=== PATIENT | male | born 1995 | race Caucasian/White ===

== ENCOUNTER 2019-07-03 09:58 | Inpatient (IN) | payer SELFPAY ==
[~2019-07-03] VITALS: Ht 170.2 cm; Wt 130.0 kg
[2019-07-03] MEDS ORDERED: SODIUM CHLORIDE 0.9% 1,000 ML IV ONE ×2 (10:26)
[2019-07-03] MEDS ORDERED: LIDOCAINE VISCOUS 2% 15ML UD PO ONE (10:30)
[2019-07-03] MEDS ORDERED: ALUM & MAG HYDROX-SIMETH LIQ(MAALOX) 30 ML PO ONE (10:30)
[2019-07-03] MEDS ORDERED: DONNATAL 5ml ORAL Elix (BELLADONNA ALK-PHENOBARB) PO ONE (10:30)
[2019-07-03 10:45] LABS: Red Blood Cells 5.52 10^6/uL (4.5-5.90)
[2019-07-03 10:48] LABS: Hemoglobin 13.5 g/dL (13.5-17.5); Mean Corpuscular Hemoglobin 24.4 pg (28.0-32.0); Mean Corpuscular Hgb Conc. 32.1 g/dL (32.0-36.0); Mean Corpuscular Volume 76.1 fL (80.0-100.0); Platelet Count (auto) 272 10^3/uL (140-450); White Blood Cell 10.7 10^3/uL (4.4-10.8)
[2019-07-03 10:59] LABS: Red Cell Distribution Width 21.1 % (11.8-14.3)
[2019-07-03 11:01] LABS: Calcium 8.4 mg/dL (8.5-10.1); Potassium 3.8 mmol/L (3.5-5.1)
[2019-07-03 11:04] LABS: Bilirubin, Total 0.3 mg/dL (0.2-1.0); Total Protein 7.4 g/dL (6.4-8.2)
[2019-07-03 12:27] LABS: Urine Bacteria NONE SEEN /hpf (None Seen); Urine Blood Negative /uL (Negative); Urine Mucus FEW (None Seen); Urine Specific Gravity 1.029 (1.001-1.035); Urine WBC 1 /hpf (0 - 3)
[2019-07-03] MEDS: FAMOTIDINE (10MG/ML) 2ML VL IV SCH ×2 (14:21→21:27)
[2019-07-03] MEDS ORDERED: GASTROGRAFIN 120 ML SOL ONE (14:21)
[2019-07-03] MEDS ORDERED: ONDANSETRON HCL 4 MG/2 ML VIAL IV PRN (14:30)
[2019-07-03] MEDS ORDERED: MORPHINE SULF INJ 2 MG/ML SYRINGE 1ML IV PRN (14:30)
--- NOTE | 2019-07-03 18:27 | NUR ---
MS admit from ER ERIKA BARON admitted to tele/MS after SBAR received. Patient oriented to Viola Mendoza, primary RN, unit, room, bed, and unit policies regarding patient care and visiting hours. Safety precautions in place, bed set to lowest position/locked, bedside rails up x2, call light within reach. Instructed patient to call for assistance. Patient verbalized understanding. Will continue to monitor q1hr and prn.
[2019-07-03] MEDS: SOD CHL 0.9%/ KCL 20MEQ 1,000 ML IV SCH ×2 (18:30→23:58)
--- NOTE | 2019-07-03 19:15 | NUR ---
NGT PATIENT REFUSED NGT PLACEMENT. EDUCATED THE PATIENT ON THE NEED FOR NGT. PATIENT STILL REFUSED. WILL INFORM MD.
--- NOTE | 2019-07-03 19:20 | NUR ---
PAGED HOSPITALIST RE: NGT, AWAITING CALL BACK.
--- NOTE | 2019-07-03 19:32 | NUR ---
SPOKE TO HOSPITALIST (KIRSTIE) AT THE NURSES STATION INFORMED HIM PATIENT IS REFUSING NGT.
[2019-07-03 22:00] VITALS: BP 116/68
[2019-07-04] MEDS: SOD CHL 0.9%/ KCL 20MEQ 1,000 ML IV SCH ×2 (02:27→15:27)
--- NOTE | 2019-07-04 03:45 | NUR ---
pt sleeping, arousable by name, no sob or distress. no c/o pain at this time. safety precautions in place. will continue to monitor.
[2019-07-04 05:00] VITALS: BP 151/82
--- NOTE | 2019-07-04 06:41 | NUR ---
s/w pt mom, verified password, update given, stated understanding.
--- NOTE | 2019-07-04 07:00 | NUR ---
ASSUMED CARE PATIENT AWAKE, ALERT AND ORIENTED, WALKING AROUND WITHOUT DIFFICULTY. PATIENT DENIES DISCOMFORT AT THIS MOMENT, HIS BM IS WATERY, HE REPORTED GOING AT LEAST 5 TIMES SINCE 6AM. UNLABORED BREATHING. POC EXPLAINED TO PATIENT. CALL LIGHT WITH IN REACH, BED IN LOWEST POSITION.
[2019-07-04 07:12] LABS: Eosinophils # (auto) 0.2 uL; Hematocrit 37.5 % (41.0-53.0); Neutrophils # (auto) 5.6 uL
[2019-07-04 07:15] LABS: Basophils # (auto) 0 uL; Basophils % (auto) 0.5 % (0.0-2.0); Eosinophils % (auto) 2.1 % (0.0-7.0); Hemoglobin 12.1 g/dL (13.5-17.5); Lymphocytes % (auto) 22.3 % (10.0-50.0); Mean Corpuscular Hemoglobin 24.3 pg (28.0-32.0); Mean Corpuscular Hgb Conc. 32.2 g/dL (32.0-36.0); Mean Corpuscular Volume 75.4 fL (80.0-100.0); Monocytes # (auto) 1.3 uL; Monocytes % (auto) 13.8 % (0.0-12.0); Neutrophils % (auto) 61.3 % (37.0-80.0); Nucleated Red Blood Cells % 0.1 %; Platelet Count (auto) 264 10^3/uL (140-450); Red Blood Cells 4.97 10^6/uL (4.5-5.90); White Blood Cell 9.1 10^3/uL (4.4-10.8)
[2019-07-04 07:24] LABS: Red Cell Distribution Width 20.4 % (11.8-14.3)
[2019-07-04 07:28] LABS: INR 1.09 (0.9-1.15); Partial Thromboplastin Time 25.1 sec (23.64-32.05)
[2019-07-04 07:34] LABS: Potassium 3.5 mmol/L (3.5-5.1)
[2019-07-04 07:38] LABS: Albumin 2.9 g/dL (3.4-5.0); BUN/Creatinine Ratio 15.3; Bilirubin, Total 0.3 mg/dL (0.2-1.0); Total Protein 6.5 g/dL (6.4-8.2)
[2019-07-04 09:00] VITALS: BP 121/62
[2019-07-04] MEDS: FAMOTIDINE (10MG/ML) 2ML VL IV SCH ×2 (10:00→22:06)
--- NOTE | 2019-07-04 10:00 | NUR ---
MEDICATION GIVEN TO PATIENT. FAMILY AT BED SIDE. PATIENT DENIES DISCOMFORT.
--- NOTE | 2019-07-04 10:15 | NUR ---
OFF UNIT PATIENT WENT FOR X RAY
[2019-07-04 13:00] VITALS: BP 119/78
--- NOTE | 2019-07-04 13:30 | NUR ---
STOOL SPECIMEN COLLECTED FOR C-DIFF
[2019-07-04 17:00] VITALS: BP 116/71
--- NOTE | 2019-07-04 18:32 | NUR ---
PATIENT IN BED, RESTING. DENIES DISCOMFORT. UNLABORED BREATHING, CALL LIGHT IN THE LOWEST POSITION FOR SAFETY, IV FLUIDS RUNNING, CALL LIGHT WITH IN REACH.
--- NOTE | 2019-07-04 19:13 | NUR ---
CARE ENDORSED TO TATUM PEACE
--- NOTE | 2019-07-04 19:55 | NUR ---
Opening Shift Note Assumed care of patient, awake and alert. No S/S of distress/SOB or pain. Instructed on POC and to call for assist PRN, will continue to monitor for changes Q1hr and PRN.
[2019-07-04 22:00] VITALS: BP 119/58
[2019-07-05] MEDS: SOD CHL 0.9%/ KCL 20MEQ 1,000 ML IV SCH ×3 (01:48→23:46)
[2019-07-05 05:00] VITALS: BP 114/57
[2019-07-05 06:54] LABS: Eosinophils # (auto) 0.3 uL; Monocytes # (auto) 0.9 uL; Neutrophils % (auto) 60.8 % (37.0-80.0)
[2019-07-05 06:56] LABS: Basophils # (auto) 0.1 uL; Basophils % (auto) 0.8 % (0.0-2.0); Eosinophils % (auto) 3.1 % (0.0-7.0); Hematocrit 38.5 % (41.0-53.0); Lymphocytes % (auto) 24.2 % (10.0-50.0); Mean Corpuscular Hemoglobin 24.3 pg (28.0-32.0); Mean Corpuscular Hgb Conc. 31.1 g/dL (32.0-36.0); Mean Corpuscular Volume 78.2 fL (80.0-100.0); Monocytes % (auto) 11.1 % (0.0-12.0); Neutrophils # (auto) 5.1 uL; Platelet Count (auto) 259 10^3/uL (140-450); Red Blood Cells 4.92 10^6/uL (4.5-5.90); White Blood Cell 8.4 10^3/uL (4.4-10.8)
--- NOTE | 2019-07-05 07:00 | NUR ---
OPENING NOTE PATIENT IN BED, AWAKE, ALERT AND ORIENTED. DENIES PAIN OR DISCOMFORT. INSTRUCTED PATIENT ON POC, WELL TO CALL FOR HELP NEEDED USING THE CALL LIGHT. CALL LIGHT WITH IN REACH, ANNA IN LOWEST POSITION FOR SAFETY. WILL CONTINUE TO MONITOR.
[2019-07-05 07:08] LABS: Red Cell Distribution Width 20.9 % (11.8-14.3)
[2019-07-05 07:10] LABS: Albumin 2.9 g/dL (3.4-5.0); Calcium 8.1 mg/dL (8.5-10.1); Magnesium 2.3 mg/dL (1.6-2.6); Potassium 4.3 mmol/L (3.5-5.1)
[2019-07-05 07:13] LABS: BUN/Creatinine Ratio 13.9
[2019-07-05 07:14] LABS: Bilirubin, Total 0.4 mg/dL (0.2-1.0); Total Protein 5.8 g/dL (6.4-8.2)
[2019-07-05 09:00] VITALS: BP 122/79
[2019-07-05] MEDS: FAMOTIDINE (10MG/ML) 2ML VL IV SCH ×2 (09:23→21:41)
--- NOTE | 2019-07-05 10:30 | NUR ---
SURGEON DR BUTLER SAW THE PATIENT.
--- NOTE | 2019-07-05 11:14 | NUR ---
DR SHAIKH AGUILAR SAW PATIENT, EXPLAINED TO PATIENT AND FAMILY POC. PATIENT WILL START ON CLEAR LIQUIDS TOLERATED, AWAITING RESULTS FROM C DIFF.
--- NOTE | 2019-07-05 12:30 | NUR ---
STOOL FOR C DIFF CAME BACK NEGATIVE.
--- NOTE | 2019-07-05 12:43 | NUR ---
PATIENT HAVING LUNCH CLEAR LIQUID ORDERED. PATIENT INSTRUCTED TO REPORT ANY NAUSEA/VOMITING OR DISCOMFORT RIGHT AWAY TO THE RN
[2019-07-05 13:00] VITALS: BP_SYST 125; BP_SYST 130; BP_DIAS 61; BP_DIAS 71
--- NOTE | 2019-07-05 14:23 | NUR ---
NUTRITION ASSESSMENT NOTES Please refer to link notes of nutrition screen form filed under the intervention section of the plan of care for further details. Est. Needs based on AdBW (83 kg): 1650 kcal to 2500 kcal (20-25 kcal/kgAdBW), 83 gms to 100 gms pro (1.0-1.2 gms/kgAdBW). Will continue to monitor pertinent labs and reassess nutrient need prn Thank you. Addendum: 07/05/19 at [address] Amended: Links added.
--- NOTE | 2019-07-05 15:57 | NUR ---
PATIENT WILL HAVE FULL LIQUIDS FOR DINNER, IF HE TOLERATES IT, THE N FOR BREAKFAST HE CAN BE UPGRADED TO SOFT DIET. WILL CONTINUE TO MONITOR
[2019-07-05 17:00] VITALS: BP_SYST 116; BP_SYST 135; BP_DIAS 72
--- NOTE | 2019-07-05 19:00 | NUR ---
PATIENT AWAKE, ALERT AND ORIENTED NO S/S OF DISTRESS
--- NOTE | 2019-07-05 19:37 | NUR ---
care endorsed to rn
[2019-07-05 22:00] VITALS: BP 99/54
[2019-07-06 05:00] VITALS: BP 109/55
[2019-07-06 06:17] LABS: Potassium 3.8 mmol/L (3.5-5.1)
[2019-07-06 06:22] LABS: BUN/Creatinine Ratio 9.1; Calcium 8.3 mg/dL (8.5-10.1)
--- NOTE | 2019-07-06 07:45 | NUR ---
Opening Shift Note Assumed care of patient, awake, alert, and oriented. No S/S of distress/SOB or pain. Bed in lowest/locked position, bed rails up x2, call light within reach. Instructed on POC and to call for assist PRN. Will continue to monitor for changes Q1hr and PRN.
[2019-07-06 09:00] VITALS: BP 116/72
[2019-07-06] MEDS: FAMOTIDINE (10MG/ML) 2ML VL IV SCH (09:27)
--- NOTE | 2019-07-06 10:15 | NUR ---
MD ROUNDS DR HANCOCK AT BEDSIDE DISCUSSING POC WITH PATIENT. ALL QUESTIONS/CONCERNS ANSWERED. NEW ORDERS RECEIVED/CARRIED OUT
--- NOTE | 2019-07-06 12:07 | NUR ---
Discharge instructions given as ordered. Encourage to follow up with PMD as instructed. All questions and concerns addressed. Patient verbalized understanding. IV removed with catheter intact. Patient requested to wait in lobby for family, refused wheelchair. No distress noted at time of departure.
[2019-07-06 13:00] VITALS: BP 122/68
== END 2019-07-06 12:06 | disposition home or self-care (01) | DRG 389 ==
LOC: ER 09:58 → OVERFLOW 09:59 → WEST WING 18:35
PROVIDERS: ADMIT Nurse Practitioner Acute Care; ATTEND Internal Medicine
DX: K56.600 Partial intestinal obstruction, unspecified as to cause (principal); Z68.41 Body mass index [BMI] 40.0-44.9, adult; K76.0 Fatty (change of) liver, not elsewhere classified; A08.4 Viral intestinal infection, unspecified; E66.9 Obesity, unspecified; Z82.49 Family history of ischemic heart disease and other diseases of the circulatory system; Z83.3 Family history of diabetes mellitus
CPT/HCPCS: 36415; 74018; 74176; 74250; 80048; 80053; 81001; 82150; 83690; 83735; 85025; 85610; 85730; 87045; 87427; 87493; 96360; 96361; G0378; J3490